=== PATIENT | male | born 1970 | race Caucasian/White ===

== ENCOUNTER 2016-07-24 23:02 | Emergency (ER) | payer OTHER ==
--- NOTE | 2016-07-24 23:29 | EDM.PDOC ---
ED HPI GENERAL MEDICAL PROBLEM - General Chief Complaint: Genitourinary Problem Stated Complaint: KIDNEY STONES Time Seen by Provider: 07/24/16 23:28 - History of Present Illness INITIAL COMMENTS - FREE TEXT/NARRATIVE: 45-year-old male presents to the emergency room with right-sided abdominal pain. Patient was diagnosed with kidney stones fairly large 4-1/2 mm on the right side on the ninth of this month in [facility]. The patient is the over the road medic technician. He has been tolerating the pain during the day and driving and trying to get some rest at night. He was given Percocet 06/10/24 #20 and is now out of these. He has pain is fairly constant with a colicky component right sided flank radiating down he does not have groin tenderness with this. Patient denies any fevers or chills some nausea no vomiting. The patient is trying to get an important load out to [place] and that he is heading home to [place] where he is already scheduled to see urology. right lower quadrant Pain Score (Numeric/FACES): 8 - Related Data Allergies Allergy/AdvReac Type Severity Reaction Status Date / Time No Known Allergies Allergy Verified 07/24/16 23:29 Home Meds: Home Meds . [No Known Home Meds] 07/24/16 [History] ED ROS GENERAL - Review of Systems Review Of Systems: See Below Constitutional: Reports: No Symptoms Respiratory: Reports: No Symptoms Cardiovascular: Reports: No Symptoms GI/Abdominal: Reports: Abdominal Pain : Reports: Flank Pain. Denies: Dysuria, Frequency, Hematuria, Urgency Neurological: Reports: No Symptoms ED EXAM, GI/ABD - Physical Exam Exam: See Below Exam Limited By: No Limitations General Appearance: Alert, No Apparent Distress Head: Atraumatic, Normocephalic Neck: Normal Inspection, Supple, Non-Tender, Full Range of Motion. No: Lymphadenopathy (L), Lymphadenopathy (R) Respiratory/Chest: No Respiratory Distress, Lungs Clear, Normal Breath Sounds Cardiovascular: Regular Rate, Rhythm, No Edema, No Murmur GI/Abdominal: Normal Bowel Sounds, Soft, Other (He has right-sided discomfort not worsened with palpation no rebound or guarding noted) Back Exam: Normal Inspection. No: CVA Tenderness (L), CVA Tenderness (R) Course - Vital Signs Last Recorded V/S: Last Vital Signs Temp 35.9 C 07/24/16 23:23 Pulse 83 07/24/16 23:23 Resp 18 07/24/16 23:23 BP 126/89 07/25/16 01:28 Pulse Ox 99 07/24/16 23:23 - Orders/Labs/Meds Orders: Active Orders 24 hr Category Date Time Status Acetaminophen/oxyCODONE [Percocet 325-5 MG] Med 07/25/16 02:59 Once 1 tab PO ONETIME ONE Lactated Ringers [Ringers, Lactated] 1,000 ml Med 07/24/16 23:45 Active IV ASDIRECTED Medication Orders Lactated Ringer's (Ringers, Lactated) 1,000 mls @ 150 mls/hr IV ASDIRECTED LEXI Last Admin: 07/25/16 00:14 Dose: 150 mls/hr Labs: Laboratory Tests 07/25/16 07/25/16 07/25/16 Range/Units 00:15 00:15 01:15 WBC 9.25 H (4.23-9.07) K/mm3 RBC 4.84 (4.63-6.08) M/mm3 Hgb 15.6 (13.7-17.5) gm/L Hct 45.0 (40.1-51.0) % MCV 93.0 H (79.0-92.2) fl MCH 32.2 (25.7-32.2) pg MCHC 34.7 (32.2-35.5) g/dl RDW Std Deviation 42.9 (35.1-43.9) fL Plt Count 291 (163-337) K/mm3 MPV 9.6 (9.4-12.3) fl Neutrophils % (Manual) 69 H (40-60) % Band Neutrophils % 0 (0-10) % Lymphocytes % (Manual) 26 (20-40) % Atypical Lymphs % 0 % Monocytes % (Manual) 3 (2-10) % Eosinophils % (Manual) 2 (0.8-7.0) % Basophils % (Manual) 0 L (0.2-1.2) Platelet Estimate Adequate RBC Morph Comment Normal Sodium 142 (136-145) mEq/L Potassium 3.8 (3.5-5.1) mEq/L Chloride 105 (98-107) mEq/L Carbon Dioxide 29 (21-32) mEq/L Anion Gap 11.8 (5-15) BUN 14 (7-18) mg/dL Creatinine 1.1 (0.7-1.3) mg/dL Est Cr Clr Drug Dosing 88.42 mL/min Estimated GFR (MDRD) > 60 (>60) mL/min BUN/Creatinine Ratio 12.7 L (14-18) Glucose 108 H (74-106) mg/dL Calcium 8.8 (8.5-10.1) mg/dL Urine Color Yellow (Yellow) Urine Appearance Clear (Clear) Urine pH 7.0 (5.0-8.0) Ur Specific Loop 1.020 (1.005-1.030) Urine Protein Trace H (Negative) Urine Glucose (UA) Negative (Negative) Urine Ketones Negative (Negative) Urine Occult Blood 1+ H (Negative) Urine Nitrite Negative (Negative) Urine Bilirubin Negative (Negative) Urine Urobilinogen 1.0 (0.2-1.0) Ur Leukocyte Esterase Negative (Negative) Urine RBC 5-10 H (0-5) /hpf Urine WBC 0-5 (0-5) /hpf Ur Epithelial Cells 0-5 (0-5) /hpf Urine Bacteria Not seen (FEW) /hpf Urine Mucus Not seen (FEW) /hpf Meds: Medications Generic Name Dose Route Start Last Admin Trade Name Freele PRN Reason Stop Dose Admin Lactated Ringer's 1,000 mls @ 150 mls/hr 07/24/16 23:45 07/25/16 00:14 Ringers, Lactated IV 150 mls/hr ASDIRECTED LEXI Administration Discontinued Medications Generic Name Dose Route Start Last Admin Trade Name Austin PRN Reason Stop Dose Admin Fentanyl 100 mcg 07/24/16 23:51 07/25/16 00:15 Sublimaze IVPUSH 07/24/16 23:52 100 mcg ONETIME ONE Administration Oxycodone/Acetaminophen 1 tab 07/25/16 01:15 07/25/16 01:26 Percocet 325-5 Mg PO 07/25/16 01:16 1 tab ONETIME ONE Administration - Re-Assessments/Exams Free Text/Narrative Re-Assessment/Exam: 07/25/16 00:01 A week out from his diagnosis we should recheck some labs make sure his urine is not infected and his renal function is acceptable. In the meantime he'll be started on IV fluids given some fentanyl anticipate refilling his Percocet he understands in no uncertain terms that he has to allow 12 hours after using the pain medication before he can drive and that is why it is taking them so long to get to where he is going. 07/25/16 03:01 Labs unrevealing urinalysis no signs of infection creatinine 1.1. Patient will be discharged with Percocet he had good pain relief with a single dose of fentanyl this was followed up with Percocet right now he's got about 50% pain relief will give him a second Percocet and he would like to go back and get some sleep. Departure - Departure Time of Disposition: 03:01 Disposition: Home, Self-Care 01 Clinical Impression: Right nephrolithiasis - Discharge Information Referrals: PCP,Not In Area [Primary Care Provider] - Forms: ED Department Discharge Additional Instructions: Return to the emergency room with any questions or problems. Continue your Flomax. We will give you Percocet # 30 from the machine out in the waiting room. One or 2 every 4-6 hours as needed for pain allowed 12 hours after using this medication before driving or returning to work. Follow-up with your regular physician as soon as she gets home if your condition worsens go to the closest emergency room if he developed any fevers go to the nearest emergency room - My Orders Last 24 Hours: My Active Orders 07/24/16 23:45 Lactated Ringers [Ringers, Lactated] 1,000 ml IV ASDIRECTED 07/25/16 02:59 Acetaminophen/oxyCODONE [Percocet 325-5 MG] 1 tab PO ONETIME ONE - Assessment/Plan Last 24 Hours: My Active Orders 07/24/16 23:45 Lactated Ringers [Ringers, Lactated] 1,000 ml IV ASDIRECTED 07/25/16 02:59 Acetaminophen/oxyCODONE [Percocet 325-5 MG] 1 tab PO ONETIME ONE
[2016-07-24] MEDS ORDERED: Lactated Ringers 1,000 ML IV SCH (23:45)
[2016-07-24] MEDS ORDERED: fentaNYL 100 MCG/2 ML SDV IVPUSH ONE (23:51)
[2016-07-25] MEDS ORDERED: Acetaminophen/oxyCODONE 325-5 MG Tab PO ONE ×2 (01:15→02:59)
[2016-07-25 01:28] VITALS: BP 126/89
== END 2016-07-25 03:17 | disposition home or self-care (01) ==
LOC: JD.ED 23:02
DX: N20.0 Calculus of kidney (principal)
CPT/HCPCS: 36415; 80048; 81001; 85025; 96361; 96374; 99284; A9270; J3010; J7120